=== PATIENT | male | born 1945 | race Caucasian/White ===

== ENCOUNTER → 2020-08-28 10:28 | Outpatient (BNVA) | payer MEDICARE, OTHER, SELFPAY | PROVIDERS: PCP Internal Medicine; Visit Provider Surgery | DX: K40.90 Unilateral inguinal hernia, without obstruction or gangrene, not specified as recurrent (principal) | CPT/HCPCS: 99202 ==

== ENCOUNTER 2020-09-12 07:59 | Day surgery (SDC) | payer MEDICARE, OTHER, SELFPAY ==
[2020-09-06 12:56] VITALS: BMI 26.5
--- NOTE | 2020-09-06 14:50 | HO.ANESPROP2 ---
Documented by User: Dianna Phillipsney 09/06/20 14:57 HPI - Anesthesia Eval Consult details Narrative: 75yo M for Left Hernia Repair Inguinal with mesh Eliquis for afib Per RN PAT assessment, patient active with hiking no CP/SOB PMFSH Active Problems Active Problems: All Active Problems (Updated 09/06/20 @ 13:00 by Zenobia Li) Reducible left inguinal hernia (Acute) Past Medical History Medical History Arthritis Atherosclerosis of abdominal aorta COVID-19 vaccine administered Elevated BUN Gastroesophageal reflux disease without esophagitis Mild intermittent asthma without complication Paroxysmal atrial fibrillation Prostatism Pure hypercholesterolemia Tension headache Family History Family History Brother Lung cancer Brother Prostate cancer Surgical History Surgical History H/O colonoscopy (2011) H/O endoscopy (2011) History of tonsillectomy Social History Social History Are you a primary day care worker to a significant other at home: No Do you presently have visiting nurse or other home services: No Alcohol intake: never Smoking Status: Former smoker Smoking Quit Date: 1975 Use of substances other than those prescribed or required for medical reasons: No Have you been hit, kicked, punched, or otherwise hurt by someone within the past year? If so, by whom?: No Advance Directives Information Provided: No Recently lost weight without trying: No Meds Allergies Allergy/AdvReac Type Severity Reaction Status Date / Time No Known Allergies Allergy Verified 09/12/20 08:13 Home Medications Medication Instructions Recorded Confirmed Last Taken Type Bifidobacterium infantis 4 mg 4 mg PO DAILY 08/28/20 09/06/20 Unknown History capsule apixaban 5 mg tablet 5 mg PO BID 08/28/20 09/06/20 Unknown History atorvastatin 40 mg tablet 40 mg PO DAILY 08/28/20 09/06/20 Unknown History esomeprazole magnesium 20 mg 20 mg PO DAILY 08/28/20 09/06/20 Unknown History capsule,delayed release metoprolol tartrate 25 mg PO DAILY PRN 09/06/20 09/06/20 Unknown History Exam Exam Date and Time: September 06, 2020 1450 Height,Weight and Vital Signs: Height 5 ft 10 in Weight 84 kg Narrative Narrative: Echo 01/2020 LV size is normal Nml LV systolic function. EF 55-60% No RWMA Unable to assess diastolic function d/t afib Mild Mitral regurg Mild Aortic regurg. No . Mild dilation of aortic root @ 3.8cm, asc aorta @ 4.1 Compared with 2018, afib is new but no other changes Assessment and Plan Assessment Anesthesia Assessment: Chart Reviewed Documented by User: Randa Chow 09/12/20 10:20 PMFSH Past Medical History Medical History Arthritis Atherosclerosis of abdominal aorta COVID-19 vaccine administered Elevated BUN Gastroesophageal reflux disease without esophagitis Mild intermittent asthma without complication Paroxysmal atrial fibrillation Prostatism Pure hypercholesterolemia Tension headache Family History Family History Brother Lung cancer Brother Prostate cancer Surgical History Surgical History H/O colonoscopy (2011) H/O endoscopy (2011) History of tonsillectomy Social History Social History Are you a primary day care worker to a significant other at home: No Do you presently have visiting nurse or other home services: No Alcohol intake: never Smoking Status: Former smoker Smoking Quit Date: 1975 Use of substances other than those prescribed or required for medical reasons: No Have you been hit, kicked, punched, or otherwise hurt by someone within the past year? If so, by whom?: No Advance Directives Information Provided: No Recently lost weight without trying: No Meds Allergies Allergy/AdvReac Type Severity Reaction Status Date / Time No Known Allergies Allergy Verified 09/12/20 08:13 Home Medications Medication Instructions Recorded Confirmed Last Taken Type Bifidobacterium infantis 4 mg 4 mg PO DAILY 08/28/20 09/06/20 Unknown History capsule apixaban 5 mg tablet 5 mg PO BID 08/28/20 09/06/20 Unknown History atorvastatin 40 mg tablet 40 mg PO DAILY 08/28/20 09/06/20 Unknown History esomeprazole magnesium 20 mg 20 mg PO DAILY 08/28/20 09/06/20 Unknown History capsule,delayed release metoprolol tartrate 25 mg PO DAILY PRN 09/06/20 09/06/20 Unknown History Exam Airway Mallampati Class: II TM Dist: >3cm Neck ROM: Full Denture: Upper Partial: Lower Loose/Missing/Broken Teeth: Yes, Upper and Lower Heart: RRR Lungs: CTA Assessment and Plan Assessment Anesthesia Assessment: Anesthesia Plan Discussed and Chart Reviewed Final Anesthetic Review NPO: Yes ASA Class: III Final Preanesthetic Review: Meds/Allgs Chart Reviewed and Consent Obtained/Reviewed Patient Risk: Intermediate Procedure Risk: Low Anesthetic Plan Anesthetic Plan: GA Disposition: Standard PACU
[2020-09-12] VITALS (7 sets, daily range): BP systolic 128–142; BP diastolic 60–71; PULSE 54–72; RESP 16–18; TEMP 36.2–36.4; O2SAT 97–100
--- NOTE | 2020-09-12 08:48 | ECG_ITS ---
Test Reason : ABNORM RHYTHM Blood Pressure : / mmHG Vent. Rate : 062 BPM Atrial Rate : 062 BPM P-R Int : 308 ms QRS Dur : 088 ms QT Int : 414 ms P-R-T Axes : 039 051 040 degrees QTc Int : 420 ms Sinus rhythm with 1st degree A-V block with occasional Premature ventricular complexes and Premature atrial complexes Abnormal ECG No previous ECGs available Referred By: Jacky Ashton Electronically Signed By:DOMINGO PEDROZA
[2020-09-12] MEDS: Lactated Ringers 1,000 ML 100 ML IVCONT (09:38)
--- NOTE | 2020-09-12 09:42 | PC.NURSE ---
Abnormal rhythm, anesthesia evaluated, ekg done and pt cleared to go ahead with surgery
--- NOTE | 2020-09-12 10:11 | MHC.SHP ---
Pre-Procedural Eval Section A The patient is an INPATIENT: No Changes since office visit: Yes Patient answered all questions; No Cold of Flu in the past 2 weeks, No New Medical Problems and No Changes in Medication The History & Physical has been completed within 30 days and I have reviewed it.: Yes Section B Chief Complaint: inguinal hernia Allergies: Allergies Allergy/AdvReac Type Severity Reaction Status Date / Time No Known Allergies Allergy Verified 09/12/20 08:13 Plan Diagnosis/Plan: Unchanged I have reviewed the history and physical and performed a pertinent physical examination on my patient. No changes have occurred unless specified.
--- NOTE | 2020-09-12 11:32 | P.OP_ITS ---
Operative Note Operative Note Date of Service: 09/12/20 Narrative: Preoperative diagnosis: Left inguinal hernia Postoperative diagnosis: Same Procedure: Repair of left inguinal hernia Surgeon: James Sanchez MD Yeast Distiller: None Anesthesia: General LMA Indications for procedure: 75-year-old male patient presenting with a painful lump in the left groin which seems to increase in size with lifting and straining as well as when having a bowel movement. On examination the patient has a palpable hernia with Valsalva maneuvers. Hernia is reducible. Operative findings:. Patient was found to have a moderate-size indirect left inguinal hernia with a small lipoma of the cord Specimen: Hernia sac and lipoma of the cord left side Estimated blood loss: 5 mL Complications: None Procedure details: Patient was brought to the OR and placed in a supine position. After administering general anesthesia the patient's abdomen was prepped with ChloraPrep and draped in a sterile fashion. A surgical time-out was called the consent confirmed. Patient received preoperative antibiotics and Venodyne boots were in place. Local anesthesia consisting of 0.5% Sensorcaine with epinephrine was infiltrated over the left inguinal ligament. Incision was then made in oblique fashion over the inguinal ligament. This carried out through subcutaneous tissue past Anju's fashion up to the external oblique aponeurosis. Hemostasis was assured using free ties of 3-0 Polysorb. Additional local was infiltrated below the external oblique aponeurosis. This was then incised with a scalpel wide with the Metzenbaum scissors. Spermatic cord was then dissected free from the surro unding inguinal canal and retracted using a Barrett drain. Fibers of the cremasteric muscle were then and a moderate-sized indirect sac identified. This was dissected down to the internal ring. The sac was then opened and the contents reduced. A 0 Polysorb suture was used to ligate the sac and the sac was divided above this. This was sent to the specimen. The sac was then reduced into the abdominal cavity. Attention was then directed to the direct space which was divided between Allis clamps. The preperitoneal space was then created. This was opened further using an open Ray -Blade sponge. A large PHS mesh was then obtained. The circular underlay was placed into the preperitoneal space and deployed. The overlay was then secured to the pubic tubercle conjoined tendon shelving edge of the inguinal ligament using interrupted 0 Polysorb sutures. A slit was made in the mesh and the mesh were wrapped around the spermatic cord at the internal ring. This was then secured to the shelving edge of the inguinal ligament using the 0 Polysorb suture. This was felt to be loose enough to allow the tip of an index finger to pass. Wounds were checked for hemostasis. Wounds were irrigated with saline solution and suctioned dry. External oblique aponeurosis was then closed using a running 2 0 Polysorb suture. Anju's fascia and dermis reapproximated using interrupted 3-0 Polysorb sutures. Skin was then closed using a running subcuticular 4-0 Polysorb suture. Steri-Strips 2 x 2 gauze and Tegaderm were then applied. The patient tolerated the procedure well. Sponge, instrument, needle counts reported as correct. Patient was transferred to PACU in stable condition.
[2020-09-12] MEDS: Acetaminophen 325 MG TABLET 650 MG PO (12:05)
[2020-09-12] MEDS: Ketorolac Tromethamine 15 MG/ML VIAL IVPUSH (12:15)
== END 2020-09-12 12:55 | disposition home or self-care (01) ==
PROVIDERS: PCP Internal Medicine; Visit Provider Surgery
PROC: (CPT 49505; principal; 2020-09-12 10:20)
DX: K40.90 Unilateral inguinal hernia, without obstruction or gangrene, not specified as recurrent (principal); I48.0 Paroxysmal atrial fibrillation; J45.20 Mild intermittent asthma, uncomplicated; Z79.01 Long term (current) use of anticoagulants; Z79.899 Other long term (current) drug therapy
CPT/HCPCS: 49505; 88302; 88304; 93005; C1781; J0690; J1885; J2405; J3010

== ENCOUNTER → 2020-09-20 10:22 | Outpatient (BNVA) | payer MEDICARE, OTHER, SELFPAY | PROVIDERS: PCP Internal Medicine; Visit Provider Surgery | DX: K40.90 Unilateral inguinal hernia, without obstruction or gangrene, not specified as recurrent (principal) | CPT/HCPCS: 99212 ==

== ENCOUNTER 2020-10-15 10:49 | Outpatient (REF) | payer MEDICARE, OTHER, SELFPAY ==
[2020-10-15 11:09] LABS: Estimated Average Glucose 114 mg/dL; Hemoglobin A1c % 5.6 %
[2020-10-15 12:42] LABS: Alanine Aminotransferase 24 U/L (0-40); Albumin Level 4.4 g/dL (3.5-5.0); Alkaline Phosphatase 74 U/L (39-117); Aspartate Amino Transferase 22 U/L (5-37); Bilirubin Direct 0.4 mg/dL (0.0-0.5); Cholesterol 130 mg/dL; Glucose Fasting 105 mg/dL (60-99); HDL Cholesterol 49 mg/dL; LDL Cholesterol Calculated 64 mg/dl; Total Protein 6.7 g/dL (6.5-8.0); Triglycerides 86 mg/dL
[2020-10-15 13:01] LABS: Reflex LDLD? No
== END 2020-10-15 10:50 | disposition home or self-care (01) ==
LOC: HO.LNP 10:49
PROVIDERS: Visit Provider Internal Medicine
DX: E78.00 Pure hypercholesterolemia, unspecified (principal); R73.03 Prediabetes
CPT/HCPCS: 80061; 80076; 82947; 83036

== ENCOUNTER → 2020-10-17 09:12 | Outpatient (BNVA) | payer MEDICARE, OTHER, SELFPAY | PROVIDERS: PCP Internal Medicine; Referring Provider Internal Medicine; Visit Provider Surgery | DX: Z48.815 Encounter for surgical aftercare following surgery on the digestive system (principal); Z87.19 Personal history of other diseases of the digestive system | CPT/HCPCS: 99212 ==

== ENCOUNTER 2021-04-21 10:46 | Outpatient (REF) | payer MEDICARE, OTHER, SELFPAY ==
[2021-04-21 10:52] LABS: MANUAL DIFF FLAG NO
[2021-04-21 11:25] LABS: Basophils Percent Auto 0.5 % (0-2); Eosinophils Absolute Auto 0.3 X10*3/uL (0.0-0.4); Eosinophils Percent Auto 4.1 % (0-4); Hematocrit 46.8 % (42.0-52.0); Hemoglobin 15.5 g/dl (14.0-18.0); Imm Gran Abs Auto 0.02 X10*3/uL (0.00-0.03); Imm Gran Pct Auto 0.3 % (0.0-0.4); Lymphocytes Absolute Auto 1.5 X10*3/uL (1.2-4.9); Lymphocytes Percent Auto 22.8 % (20-40); Mean Corpuscular HGB Conc 33.1 g/dl (31.0-36.0); Mean Corpuscular Hemoglobin 31.9 pg (27.0-33.0); Mean Corpuscular Volume 96.3 fL (80.0-98.0); Mean Platelet Volume 9.9 fL (9.4-12.4); Monocytes Absolute Auto 0.6 X10*3/uL (0.1-1.2); Monocytes Percent Auto 8.6 % (2-11); Neutrophils Absolute Auto 4.2 x10*3/uL (2.0-8.3); Neutrophils Percent Auto 63.7 % (45-73); Platelet Count 216 X10*3/uL (160-400); Red Blood Count 4.86 X10*6/uL (4.60-5.80); Red Cell Distribution Width 12.5 % (11.0-16.0); White Blood Count 6.6 X10*3/uL (4.8-10.8)
[2021-04-21 11:26] LABS: Appearance Urine CLEAR; Color Urine YELLOW; Glucose Urine UA NEG (NEG); Leukocyte Esterase Urine NEG (NEG); Nitrite Urine NEG (NEG); Specific Gravity - Urine 1.025 (1.005-1.025); Urine Blood 1+ (NEG); Urine Ketones NEG (NEG); Urine Protein NEG (NEG-TRACE)
[2021-04-21 11:38] LABS: Alanine Aminotransferase 31 U/L (0-40); Albumin Level 4.4 g/dL (3.5-5.0); Alkaline Phosphatase 70 U/L (39-117); Anion Gap 13 (12-20); Aspartate Amino Transferase 24 U/L (5-37); Bilirubin Total 0.9 mg/dL (0.0-1.0); Blood Urea Nitrogen 20 mg/dL (9-16); Calcium 9.2 mg/dL (8.4-10.2); Carbon Dioxide 27 mmol/L (22-29); Chloride 104 mmol/L (96-108); Cholesterol 126 mg/dL; Estimated Glomerular Filt Rate > 60; Glucose Fasting 106 mg/dL (60-99); HDL Cholesterol 48 mg/dL; LDL Cholesterol Calculated 65 mg/dl; Potassium 4.6 mmol/L (3.3-5.1); Sodium 139 mmol/L (135-145); Total Protein 6.9 g/dL (6.5-8.0); Triglycerides 68 mg/dL
[2021-04-21 11:44] LABS: Estimated Average Glucose 111 mg/dL; Hemoglobin A1c % 5.5 %
[2021-04-21 11:51] LABS: RBC Urine 0-2 /HPF (0); Squamous Epithelial Cell Urine TRACE /LPF; WBC Urine 0-2 /HPF (0-4)
[2021-04-21 12:03] LABS: PSA,Total (Free>4and<10) 1.11 ng/mL (0.00-4.00)
[2021-04-21 12:04] LABS: Creatinine Urine 230.48 mg/dL
== END 2021-04-21 10:47 | disposition home or self-care (01) ==
LOC: HO.LNP 10:46
PROVIDERS: Visit Provider Internal Medicine
DX: Z12.5 Encounter for screening for malignant neoplasm of prostate (principal); R73.03 Prediabetes; R79.9 Abnormal finding of blood chemistry, unspecified; N40.0 Benign prostatic hyperplasia without lower urinary tract symptoms; E78.9 Disorder of lipoprotein metabolism, unspecified
CPT/HCPCS: 80053; 80061; 81001; 81003; 82043; 83036; 84153; 85025

== ENCOUNTER 2021-04-25 10:24 | Outpatient (REF) | payer MEDICARE, OTHER, SELFPAY ==
[2021-04-25 10:53] LABS: Appearance Urine HAZY; Color Urine YELLOW; Glucose Urine UA NEG (NEG); Leukocyte Esterase Urine NEG (NEG); Nitrite Urine NEG (NEG); Urine Blood 1+ (NEG); Urine Ketones NEG (NEG); Urine Protein NEG (NEG-TRACE)
[2021-04-25 11:15] LABS: Bacteria Urine 3+ /LPF; Squamous Epithelial Cell Urine TRACE /LPF; WBC Urine 0-2 /HPF (0-4)
== END 2021-04-25 10:25 | disposition home or self-care (01) ==
LOC: HO.LNP 10:24
PROVIDERS: Visit Provider Internal Medicine
DX: R31.9 Hematuria, unspecified (principal)
CPT/HCPCS: 81001

== ENCOUNTER 2021-10-23 11:13 | Outpatient (REF) | payer MEDICARE, OTHER, SELFPAY ==
[2021-10-23 11:57] LABS: Estimated Average Glucose 114 mg/dL; Hemoglobin A1C 150.7126 umol/L; Hemoglobin A1c % 5.6 %
[2021-10-23 12:05] LABS: Alanine Aminotransferase 30 U/L (0-40); Albumin Level 4.4 g/dL (3.5-5.0); Alkaline Phosphatase 72 U/L (39-117); Aspartate Amino Transferase 28 U/L (5-37); Bilirubin Direct 0.5 mg/dL (0.0-0.5); Bilirubin Total 1.1 mg/dL (0.0-1.0); Cholesterol 108 mg/dL; Glucose Fasting 114 mg/dL (60-99); HDL Cholesterol 46 mg/dL; LDL Cholesterol Calculated 52 mg/dl; Total Protein 6.7 g/dL (6.5-8.0); Triglycerides 53 mg/dL
[2021-10-23 12:25] LABS: Reflex LDLD? No
== END 2021-10-23 11:14 | disposition home or self-care (01) ==
LOC: HO.LNP 11:13
PROVIDERS: PCP Internal Medicine; Visit Provider Internal Medicine
DX: R73.03 Prediabetes (principal); E78.00 Pure hypercholesterolemia, unspecified
CPT/HCPCS: 80061; 80076; 82947; 83036

== ENCOUNTER 2022-04-21 10:48 | Outpatient (REF) | payer MEDICARE, OTHER, SELFPAY ==
[2022-04-21 10:58] LABS: MANUAL DIFF FLAG NO
[2022-04-21 11:06] LABS: Appearance Urine Clear; Color Urine Yellow; Glucose Urine UA Negative (Negative); Leukocyte Esterase Urine Negative (Negative); Nitrite Urine Negative (Negative); PH 6.5 (5.0-9.0); Urine Blood Negative (Negative); Urine Ketones Negative (Negative); Urine Protein Negative (Neg-Trace)
[2022-04-21 11:08] LABS: Basophils Percent Auto 0.5 % (0-2); Eosinophils Absolute Auto 0.3 X10*3/uL (0.0-0.4); Hematocrit 45.7 % (42.0-52.0); Hemoglobin 15.3 g/dl (14.0-18.0); Imm Gran Abs Auto 0.01 X10*3/uL (0.00-0.03); Imm Gran Pct Auto 0.2 % (0.0-0.4); Lymphocytes Absolute Auto 1.6 X10*3/uL (1.2-4.9); Lymphocytes Percent Auto 25.5 % (20-40); Mean Corpuscular HGB Conc 33.5 g/dl (31.0-36.0); Mean Corpuscular Hemoglobin 32.1 pg (27.0-33.0); Mean Platelet Volume 9.5 fL (9.4-12.4); Monocytes Absolute Auto 0.6 X10*3/uL (0.1-1.2); Monocytes Percent Auto 9.2 % (2-11); Neutrophils Absolute Auto 3.8 x10*3/uL (2.0-8.3); Neutrophils Percent Auto 59.6 % (45-73); Platelet Count 211 X10*3/uL (160-400); Red Blood Count 4.76 X10*6/uL (4.60-5.80); Red Cell Distribution Width 12.7 % (11.0-16.0); White Blood Count 6.4 X10*3/uL (4.8-10.8)
[2022-04-21 11:12] LABS: Bacteria Urine None Seen (None Seen); Hyaline Casts Urine 0-2 /LPF (0-2); RBC Urine 0-2 /HPF (0-2); Squamous Epithelial Cell Urine 0-2 /HPF (0-2); WBC Urine 0-5 /HPF (0-5)
[2022-04-21 11:21] LABS: Alanine Aminotransferase 40 U/L (0-40); Albumin Level 4.5 g/dL (3.5-5.0); Alkaline Phosphatase 78 U/L (39-117); Anion Gap 14 (12-20); Aspartate Amino Transferase 28 U/L (5-37); Bilirubin Total 0.9 mg/dL (0.0-1.0); Blood Urea Nitrogen 22 mg/dL (9-16); Calcium 9.5 mg/dL (8.4-10.2); Carbon Dioxide 28 mmol/L (22-29); Chloride 103 mmol/L (96-108); Cholesterol 115 mg/dL; Estimated Glomerular Filt Rate > 60; Glucose Fasting 111 mg/dL (60-99); HDL Cholesterol 53 mg/dL; LDL Cholesterol Calculated 52 mg/dl; Potassium 4.7 mmol/L (3.3-5.1); Sodium 140 mmol/L (135-145); Total Protein 6.9 g/dL (6.5-8.0); Triglycerides 50 mg/dL
[2022-04-21 11:39] LABS: Creatinine Urine 212.83 mg/dL; Microalbum/Creatinine Ratio Ur 6.1 ug/mg cr
[2022-04-21 11:45] LABS: PSA,Total (Free>4and<10) 2.99 ng/mL (0.00-4.00)
[2022-04-21 11:46] LABS: Estimated Average Glucose 111 mg/dL; Hemoglobin A1C 149.7808 umol/L; Hemoglobin A1c % 5.5 %
== END 2022-04-21 10:49 | disposition home or self-care (01) ==
LOC: HO.LNP 10:48
PROVIDERS: Visit Provider Internal Medicine
DX: Z12.5 Encounter for screening for malignant neoplasm of prostate (principal); R73.03 Prediabetes; R79.9 Abnormal finding of blood chemistry, unspecified; N40.0 Benign prostatic hyperplasia without lower urinary tract symptoms; E78.00 Pure hypercholesterolemia, unspecified
CPT/HCPCS: 80053; 80061; 81001; 82043; 83036; 84153; 85025

== ENCOUNTER 2022-05-21 11:16 | Outpatient (REF) | payer MEDICARE, OTHER, SELFPAY ==
[2022-05-21 13:27] LABS: PSA,Total (Free>4and<10) 3.37 ng/mL (0.00-4.00)
== END 2022-05-21 11:17 | disposition home or self-care (01) ==
LOC: HO.LNP 11:16
PROVIDERS: Visit Provider Internal Medicine
DX: N40.0 Benign prostatic hyperplasia without lower urinary tract symptoms (principal); Z12.5 Encounter for screening for malignant neoplasm of prostate
CPT/HCPCS: 84153

== ENCOUNTER 2022-07-10 14:09 | Outpatient (REF) | payer MEDICARE, OTHER, SELFPAY ==
--- NOTE | ~2022-07-10 | XR_ITS ---
EXAMINATION: XR CHEST CLINICAL INFORMATION: Chest wall pain COMPARISON: Chest x-ray 02/13/2019 TECHNIQUE: 2 views of the chest were obtained. FINDINGS: Lungs are clear. No pulmonary vascular congestion. There is no pleural effusion. The heart size is normal. The cardiac and mediastinal contours are normal. There are calcifications of the thoracic aorta. There are multilevel degenerative changes of dorsal spine. XR/XR chest 2V IMPRESSION: Unremarkable examination.
== END 2022-07-10 14:10 | disposition home or self-care (01) ==
LOC: HO.XRAY 14:09
PROVIDERS: PCP Internal Medicine; Visit Provider Internal Medicine
DX: R07.89 Other chest pain (principal)
CPT/HCPCS: 71046

== ENCOUNTER 2022-07-29 07:44 | Outpatient (REF) | payer MEDICARE, OTHER, SELFPAY ==
--- NOTE | ~2022-07-29 | US_ITS ---
EXAMINATION: US ABDOMEN COMPLETE CLINICAL INFORMATION: Upper quadrant abdominal pain. COMPARISON: CT abdomen and pelvis 04/02/2015. TECHNIQUE: Real-time imaging of the abdominal viscera. FINDINGS: PANCREAS: Suboptimally assessed due to shadowing from overlying bowel gas. ABDOMINAL AORTA: Atherosclerotic disease. Normal diameter. INFERIOR VENA CAVA: Visualized portions are normal. LIVER: Suggestion of heterogeneous echogenicity of the parenchyma without discrete focal lesion. No biliary ductal dilatation. GALLBLADDER: Normal. The gallbladder is physiologically distended without evidence of stones, sludge, polyps, wall thickening or pericholecystic fluid. COMMON BILE DUCT: Normal in caliber measuring 0.3 cm in diameter. RIGHT KIDNEY: There is a 1.4 x 2 x 1.1 cm cyst in the lateral surface of the interpolar region with a thin internal septation. No hydronephrosis or renal calculi. The kidney measures 12.9 cm in maximum dimension. LEFT KIDNEY: No hydronephrosis. No renal calculi or focal parenchymal lesions. The kidney measures 11.8 cm in maximum dimension. SPLEEN: Normal. The spleen measures 11.2 cm in maximum dimension. FREE FLUID: None. US/US abdomen complete IMPRESSION: 1. Suggestion of heterogeneous echogenicity of the liver parenchyma which is nonspecific but could be seen in the setting of hepatic steatosis or hepatocellular disease. Correlate with liver function tests. 2. A 2 cm cyst in the lateral surface of the interpolar right kidney demonstrates a single thin internal septation and remains overall stable in size compared to a CT from 04/02/2015, which is reassuring, overall classified as a Bosniak 2 cyst, for which no imaging follow-up is recommended.
== END 2022-07-29 07:45 | disposition home or self-care (01) ==
LOC: HO.US 07:44
PROVIDERS: Visit Provider Internal Medicine
DX: R10.11 Right upper quadrant pain (principal)
CPT/HCPCS: 76700

== ENCOUNTER 2022-08-19 08:10 | Day surgery (SDC) | payer MEDICARE, OTHER, SELFPAY ==
--- NOTE | 2022-08-18 10:02 | P.CONAN_ITS ---
Documented by User: Dianna Macdonald NP 08/18/22 10:20 HPI - Anesthesia Eval Consult details Narrative: 77yo M for Upper Endoscopy and Colonoscopy Eliquis for afib PMFSH Active Problems Active Problems: All Active Problems (Updated 08/18/22 @ 08:17 by Charla Jarvis) Reducible left inguinal hernia (Acute) Past Medical History Medical History (Updated 08/18/22 @ 08:17 by Charla Jarvis) Arthritis Atherosclerosis of abdominal aorta COVID-19 vaccine administered Elevated BUN Gastroesophageal reflux disease without esophagitis Hyperlipidemia Mild intermittent asthma without complication Paroxysmal atrial fibrillation Pilonidal cyst Prostatism Pure hypercholesterolemia Tension headache Family History Family History Brother Lung cancer Brother Prostate cancer Surgical History Surgical History (Updated 08/18/22 @ 08:16 by Charla Jarvis) H/O colonoscopy (2011) H/O endoscopy (2011) H/O hernia repair H/O knee surgery History of tonsillectomy Social History Social History Are you a primary child care associate to a significant other at home: No Do you presently have visiting nurse or other home services: No Alcohol intake: never Patient Tobacco Use Status: Former Tobacco user Quit Date: 1975 Tobacco use type: Cigarette Smoked in Last 30 Days: No Use of substances other than those prescribed or required for medical reasons: No Are you DNR?: No Advance Directives: No Advance Directives Information Provided: Yes Meds Allergies Allergy/AdvReac Type Severity Reaction Status Date / Time amoxicillin [From Augmentin] Allergy Diarrhea Verified 08/19/22 10:06 clavulanic acid Allergy Diarrhea Verified 08/19/22 10:06 [From Augmentin] Home Medications Medication Instructions Recorded Confirmed Last Taken Type Bifidobacterium infantis 4 mg 4 mg PO DAILY 08/28/20 08/19/22 Unknown History capsule (Align) apixaban 5 mg tablet (Eliquis) 5 mg PO BID 08/28/20 08/19/22 08/15/22 History atorvastatin 40 mg tablet 40 mg PO DAILY 08/28/20 08/19/22 Unknown History esomeprazole magnesium 20 mg 20 mg PO DAILY 08/28/20 08/19/22 09/12/20 06:00 History capsule,delayed release (Nexium) Exam Exam Date and Time: August 18, 2022 1002 Pertinent Lab Results Pertinent Lab Results: Laboratory Tests 04/21/22 04/21/22 Unknown Unknown WBC 6.4 Hgb 15.3 Hct 45.7 Plt Count 211 Sodium 140 Potassium 4.7 Chloride 103 Carbon Dioxide 28 BUN 22 H Creatinine 1.05 Assessment and Plan Assessment Anesthesia Assessment: Chart Reviewed Documented by User: Zach Dixon MD 08/19/22 16:11 [facility] Past Medical History Medical History (Updated 08/18/22 @ 08:17 by Charla Jarvis) Arthritis Atherosclerosis of abdominal aorta COVID-19 vaccine administered Elevated BUN Gastroesophageal reflux disease without esophagitis Hyperlipidemia Mild intermittent asthma without complication Paroxysmal atrial fibrillation Pilonidal cyst Prostatism Pure hypercholesterolemia Tension headache Family History Family History Brother Lung cancer Brother Prostate cancer Family history of problems with anesthesia: No Surgical History Surgical History (Updated 08/18/22 @ 08:16 by Charla Jarvis) H/O colonoscopy (2011) H/O endoscopy (2011) H/O hernia repair H/O knee surgery History of tonsillectomy History of Problems with Anesthesia: No Social History Social History Are you a primary child care associate to a significant other at home: No Do you presently have visiting nurse or other home services: No Alcohol intake: never Patient Tobacco Use Status: Former Tobacco user Quit Date: 1975 Tobacco use type: Cigarette Smoked in Last 30 Days: No Use of substances other than those prescribed or required for medical reasons: No Are you DNR?: No Advance Directives: No Advance Directives Information Provided: Yes Meds Allergies Allergy/AdvReac Type Severity Reaction Status Date / Time amoxicillin [From Augmentin] Allergy Diarrhea Verified 08/19/22 10:06 clavulanic acid Allergy Diarrhea Verified 08/19/22 10:06 [From Augmentin] Home Medications Medication Instructions Recorded Confirmed Last Taken Type Bifidobacterium infantis 4 mg 4 mg PO DAILY 08/28/20 08/19/22 Unknown History capsule (Align) apixaban 5 mg tablet (Eliquis) 5 mg PO BID 08/28/20 08/19/22 08/15/22 History atorvastatin 40 mg tablet 40 mg PO DAILY 08/28/20 08/19/22 Unknown History esomeprazole magnesium 20 mg 20 mg PO DAILY 08/28/20 08/19/22 09/12/20 06:00 History capsule,delayed release (Nexium) Exam Airway Mallampati Class: IV TM Dist: >3cm Denture: Upper Loose/Missing/Broken Teeth: Yes Heart: S1,S2 Lungs: b/l breath sounds Assessment and Plan Assessment Anesthesia Assessment: Anesthesia Plan Discussed Final Anesthetic Review Family History of Problems with Anesthesia: No History of Problems with Anesthesia: No NPO: Yes ASA Class: III Final Preanesthetic Review: Meds/Allgs Chart Reviewed, Consent Obtained/Reviewed and Anes Risks/Benef Reviewed Patient Risk: Intermediate Procedure Risk: Intermediate Anesthetic Plan Anesthetic Plan: MAC: Disposition: Standard PACU
[2022-08-19 08:27] VITALS: BMI 25.8
[2022-08-19 08:37] VITALS: BP 144/68; PULSE 66; RESP 16; TEMP 36.3; O2SAT 98
[2022-08-19] MEDS: Lactated Ringers 1,000 ML 100 ML IVCONT (08:41)
[2022-08-19 11:01] VITALS: BP 94/43; PULSE 54; RESP 16; TEMP 36.3; O2SAT 97
--- NOTE | 2022-08-19 11:03 | P.BOP_ITS ---
Brief Operative Note Date of Service: 08/19/22 Pre-op diagnosis: GERD, Screening Post-op diagnosis: other (Hiatal hernia, Diverticulosis) Procedure: EGD with biopsies, Colonoscopy to the cecum and TI Surgeon: Geronimo Arellano Anesthesia: MAC Was an Patient Financial Services Specialist used for this Procedure?: No Estimated blood loss (mL): 2.0 Pathology: other (A. EG Junction at 38cm) Condition: stable Disposition: PACU
--- NOTE | 2022-08-19 22:29 | OP_ITS ---
SURGEON: Geronimo Arellano MD INDICATIONS: The patient presents for evaluation of gastroesophageal reflux and colorectal cancer screening. Full consent has been obtained from him for this, including risks of bleeding and perforation. PREOPERATIVE DIAGNOSIS: POSTOPERATIVE DIAGNOSIS: PROCEDURE PERFORMED: Esophagogastroduodenoscopy with biopsies, and colonoscopy to the cecum and terminal ileum. ESTIMATED BLOOD LOSS: COMPLICATIONS: ANESTHESIA: Medication used, monitored anesthesia care. ASSISTANTS: SPECIMENS: PREOPERATIVE DIAGNOSES: Gastroesophageal reflux and colorectal cancer screening. POSTOPERATIVE DIAGNOSES: Gastroesophageal reflux and colorectal cancer screening, small hiatal hernia, mild diverticulosis, internal hemorrhoids. DESCRIPTION OF PROCEDURE: The patient was placed in the left lateral decubitus position. The Olympus video gastroscope was passed in the posterior oropharynx and upper esophagus under direct vision. The scope was passed slowly to the distal esophagus. The gastroesophageal junction appeared at 38 cm. There was some slight irregularity consistent with reflux, but no definitive evidence of Dee's esophagus. There was no esophagitis. The scope entered the stomach. There was a small hiatal hernia. The scope was advanced to the pylorus and the duodenum was cannulated to the descending portion. The duodenum including the bulb appeared normal without mass or ulceration. The duodenal folds appeared normal with normal villi. Biopsies were not obtained as he has to go back on his Eliquis and I do not think he has celiac disease based on his clinical history, previous biopsies, and the gross appearance of the duodenum on today's exam. The scope was withdrawn back into the stomach. The gastric antrum and body appeared normal with good peristalsis. The scope was retroflexed visualizing the proximal stomach carefully, which appeared normal, without any sign of mass or ulceration. The scope was straightened out and withdrawn back in the esophagus. Biopsies were obtained at the EG junction at 38 cm. Proximal to that, the esophageal mucosa appeared normal. The scope was withdrawn from the patient. He was turned around for the colonoscopy. The digital rectal exam revealed no abnormalities. The Olympus video pediatric colonoscope was entered into the rectum and advanced easily to the cecum. Once in the cecum, I did identify normal-appearing cecal pouch with appendiceal orifice and a normal-appearing ileocecal valve. The terminal ileum was cannulated and appeared normal. The scope was withdrawn back into the colon. The entire cecum and ileocecal valve appeared normal. The scope was slowly withdrawn assessing all mucosal surfaces carefully. Preparation was excellent. I did not visualize any sign of polyps, colitis nor angiodysplasia. There was a mild amount of sigmoid diverticulosis. In the rectum, the scope was retroflexed, visualizing small internal hemorrhoids, but no other pathology. The rectal mucosa appeared normal. The scope was straightened out and withdrawn from the patient. He tolerated the procedure well and was returned to the recovery area in stable condition. IMPRESSION: 1. Small hiatal hernia, gastroesophageal reflux. 2. Mild diverticulosis. 3. Internal hemorrhoids. PLAN: The results of the biopsies will be checked. Given his age and today's negative colonoscopy, I do not think he will need any further colonoscopies from a screening standpoint. He was advised to continue his Nexium at 40 mg daily in regard to the reflux. He was advised that he could resume his Eliquis within 48 hours. He will otherwise see me on a p.r.n. basis. Of note, a recent abdominal ultrasound was negative for gallstones nor any other significant pathology. This has all been discussed with his . MD HAWA Roy/MACEY / [id number] MTDD
== END 2022-08-19 12:24 | disposition home or self-care (01) ==
PROVIDERS: PCP Internal Medicine; Visit Provider Internal Medicine
PROC: (CPT 43239; principal; 2022-08-19 09:40)
DX: Z12.11 Encounter for screening for malignant neoplasm of colon (principal); K57.30 Diverticulosis of large intestine without perforation or abscess without bleeding; K64.8 Other hemorrhoids; K21.9 Gastro-esophageal reflux disease without esophagitis; K44.9 Diaphragmatic hernia without obstruction or gangrene; N40.0 Benign prostatic hyperplasia without lower urinary tract symptoms; I48.0 Paroxysmal atrial fibrillation; E78.00 Pure hypercholesterolemia, unspecified; J45.20 Mild intermittent asthma, uncomplicated; Z79.01 Long term (current) use of anticoagulants; Z79.899 Other long term (current) drug therapy; Z88.1 Allergy status to other antibiotic agents; Z87.891 Personal history of nicotine dependence
CPT/HCPCS: 43239; G0121; 88305

== ENCOUNTER 2023-04-27 10:20 | Outpatient (REF) | payer MEDICARE, OTHER, SELFPAY ==
[2023-04-27 10:26] LABS: MANUAL DIFF FLAG NO
[2023-04-27 10:34] LABS: Appearance Urine Clear; Color Urine Yellow; Glucose Urine UA Negative (Negative); Leukocyte Esterase Urine Negative (Negative); Nitrite Urine Negative (Negative); Urine Blood Negative (Negative); Urine Ketones Negative (Negative); Urine Protein Negative (Neg-Trace)
[2023-04-27 10:36] LABS: Bacteria Urine None Seen (None Seen); Hyaline Casts Urine 0-2 /LPF (0-2); Squamous Epithelial Cell Urine 0-2 /HPF (0-2); WBC Urine 0-5 /HPF (0-5)
[2023-04-27 11:15] LABS: Basophils Percent Auto 0.5 % (0-2); Eosinophils Absolute Auto 0.2 X10*3/uL (0.0-0.4); Eosinophils Percent Auto 4.4 % (0-4); Estimated Average Glucose 114 mg/dL; Hematocrit 41.4 % (42.0-52.0); Hemoglobin 13.8 g/dl (14.0-18.0); Hemoglobin A1c % 5.6 % (<6.0); Imm Gran Abs Auto 0.02 X10*3/uL (0.00-0.03); Imm Gran Pct Auto 0.5 % (0.0-0.4); Lymphocytes Absolute Auto 0.5 X10*3/uL (1.2-4.9); Lymphocytes Percent Auto 11.1 % (20-40); Mean Corpuscular HGB Conc 33.3 g/dl (31.0-36.0); Mean Corpuscular Hemoglobin 32.5 pg (27.0-33.0); Mean Corpuscular Volume 97.6 fL (80.0-98.0); Mean Platelet Volume 9.1 fL (9.4-12.4); Monocytes Absolute Auto 0.6 X10*3/uL (0.1-1.2); Monocytes Percent Auto 13.5 % (2-11); Neutrophils Absolute Auto 2.9 x10*3/uL (2.0-8.3); Platelet Count 148 X10*3/uL (160-400); Red Blood Count 4.24 X10*6/uL (4.60-5.80); Red Cell Distribution Width 11.9 % (11.0-16.0); White Blood Count 4.1 X10*3/uL (4.8-10.8)
[2023-04-27 11:32] LABS: Alanine Aminotransferase 31 U/L (0-40); Albumin Level 4.2 g/dL (3.5-5.0); Alkaline Phosphatase 82 U/L (39-117); Anion Gap 9 (12-20); Aspartate Amino Transferase 26 U/L (5-37); Bilirubin Total 0.8 mg/dL (0.0-1.0); Blood Urea Nitrogen 20 mg/dL (9-16); Calcium 9.9 mg/dL (8.4-10.2); Carbon Dioxide 32 mmol/L (22-29); Chloride 105 mmol/L (96-108); Cholesterol 125 mg/dL (<200); Estimated Glomerular Filt Rate > 60; Glucose Fasting 110 mg/dL (60-99); HDL Cholesterol 51 mg/dL (>40); LDL Cholesterol Calculated 61 mg/dL (<100); Sodium 141 mmol/L (135-145); Total Protein 6.8 g/dL (6.5-8.0); Triglycerides 68 mg/dL (<150)
[2023-04-27 12:17] LABS: Creatinine Urine 187.86 mg/dL; Microalbum/Creatinine Ratio Ur 8.5 ug/mg cr (<30)
== END 2023-04-27 10:21 | disposition home or self-care (01) ==
LOC: HO.LNP 10:20
PROVIDERS: Visit Provider Internal Medicine
DX: R73.03 Prediabetes (principal); E78.00 Pure hypercholesterolemia, unspecified; R79.9 Abnormal finding of blood chemistry, unspecified; N40.0 Benign prostatic hyperplasia without lower urinary tract symptoms
CPT/HCPCS: 80053; 80061; 81001; 82043; 82570; 83036; 85025